=== PATIENT | male | born 1950 | race Caucasian/White ===

== ENCOUNTER → 2023-04-30 09:26 | Outpatient (REF) | payer MEDICARE, OTHER, SELFPAY | LOC: RAD 09:26 | PROVIDERS: ATTENDING PHYSICIAN Family Medicine | DX: I65.23 Occlusion and stenosis of bilateral carotid arteries (principal) | CPT/HCPCS: 93880 ==

== ENCOUNTER → 2023-08-25 10:42 | Outpatient (REF) | payer MEDICARE, OTHER, SELFPAY | LOC: RAD 10:42 | PROVIDERS: ATTENDING PHYSICIAN Family Medicine | DX: Z87.891 Personal history of nicotine dependence (principal) | CPT/HCPCS: 76770 ==

== ENCOUNTER → 2023-09-30 07:43 | Outpatient (REF) | payer MEDICARE, OTHER, SELFPAY | LOC: WOUND 07:43 | PROVIDERS: ATTENDING PHYSICIAN Surgery; FAMILY PHYSICIAN Family Medicine | DX: L97.813 Non-pressure chronic ulcer of other part of right lower leg with necrosis of muscle (principal); L88 Pyoderma gangrenosum; I73.9 Peripheral vascular disease, unspecified; E11.69 Type 2 diabetes mellitus with other specified complication; I73.00 Raynaud's syndrome without gangrene; I65.23 Occlusion and stenosis of bilateral carotid arteries; Z79.4 Long term (current) use of insulin | CPT/HCPCS: 11043; 99204 ==

== ENCOUNTER → 2023-10-06 10:58 | Outpatient (REF) | payer MEDICARE, OTHER, SELFPAY | LOC: WOUND 10:58 | PROVIDERS: ATTENDING PHYSICIAN Surgery; FAMILY PHYSICIAN Family Medicine | DX: L97.813 Non-pressure chronic ulcer of other part of right lower leg with necrosis of muscle (principal); L88 Pyoderma gangrenosum; I73.9 Peripheral vascular disease, unspecified; E11.69 Type 2 diabetes mellitus with other specified complication; I73.00 Raynaud's syndrome without gangrene; I65.23 Occlusion and stenosis of bilateral carotid arteries; Z79.4 Long term (current) use of insulin | CPT/HCPCS: 99212 ==

== ENCOUNTER → 2023-10-14 11:00 | Outpatient (REF) | payer MEDICARE, OTHER, SELFPAY | LOC: WOUND 11:00 | PROVIDERS: ATTENDING PHYSICIAN Surgery; FAMILY PHYSICIAN Family Medicine | DX: L97.813 Non-pressure chronic ulcer of other part of right lower leg with necrosis of muscle (principal); L88 Pyoderma gangrenosum; I73.9 Peripheral vascular disease, unspecified; E11.69 Type 2 diabetes mellitus with other specified complication; I73.00 Raynaud's syndrome without gangrene; I65.23 Occlusion and stenosis of bilateral carotid arteries; Z79.4 Long term (current) use of insulin | CPT/HCPCS: 99213 ==

== ENCOUNTER → 2023-10-21 13:02 | Outpatient (REF) | payer MEDICARE, OTHER, SELFPAY | LOC: WOUND 13:02 | PROVIDERS: ATTENDING PHYSICIAN Surgery; FAMILY PHYSICIAN Family Medicine | DX: L97.813 Non-pressure chronic ulcer of other part of right lower leg with necrosis of muscle (principal); L97.321 Non-pressure chronic ulcer of left ankle limited to breakdown of skin; L88 Pyoderma gangrenosum; I73.9 Peripheral vascular disease, unspecified; Z79.4 Long term (current) use of insulin; E11.69 Type 2 diabetes mellitus with other specified complication; I73.00 Raynaud's syndrome without gangrene; I65.23 Occlusion and stenosis of bilateral carotid arteries | CPT/HCPCS: 11042; 99213 ==

== ENCOUNTER → 2023-10-29 13:30 | Outpatient (REF) | payer MEDICARE, OTHER, SELFPAY | LOC: WOUND 13:30 | PROVIDERS: ATTENDING PHYSICIAN Surgery; FAMILY PHYSICIAN Family Medicine | DX: L97.813 Non-pressure chronic ulcer of other part of right lower leg with necrosis of muscle (principal); L97.321 Non-pressure chronic ulcer of left ankle limited to breakdown of skin; L88 Pyoderma gangrenosum; I73.9 Peripheral vascular disease, unspecified; E11.69 Type 2 diabetes mellitus with other specified complication; I73.00 Raynaud's syndrome without gangrene; I65.23 Occlusion and stenosis of bilateral carotid arteries | CPT/HCPCS: 11042 ==

== ENCOUNTER → 2023-11-19 14:42 | Outpatient (REF) | payer MEDICARE, OTHER, SELFPAY | LOC: RAD 14:42 | PROVIDERS: ATTENDING PHYSICIAN Surgery; FAMILY PHYSICIAN Family Medicine | DX: L97.813 Non-pressure chronic ulcer of other part of right lower leg with necrosis of muscle (principal); I73.9 Peripheral vascular disease, unspecified | CPT/HCPCS: 93922; 93925 ==